=== PATIENT | female | born 1990 | race Caucasian/White ===

== ENCOUNTER → 2020-08-26 | Outpatient (CLI) | payer BC, OTHER ==
--- NOTE | 2020-09-01 09:01 | REP ---
OBSTETRIC SONOGRAPHY HISTORY: 32 weeks, growth study. Amniotic fluid index (SHANELL), estimated weight. FINDINGS: Scanning through the gravid uterus demonstrates a viable single intrauterine gestation in a transverse, head to the maternal left lie. A posterior grade 2 placenta is seen without evidence of previa. Amniotic fluid is subjectively normal. SHANELL is normal at 17.4 cm. heart rate is recorded at 133 beats per minute. Closed cervical length is measured transabdominally at 3.8 cm. S/D ratio in the umbilical cord artery by Doppler is normal at 2.96. The following anatomic structures are identified today and felt to be unremarkable: cranium and intracranial contents, face and profile nose and lips, lungs, diaphragm, left-sided stomach, abdominal wall cord insertion, kidneys and bladder, spine. BIOMETRY CHART: BPD 7.8 cm 31 weeks 2 days Head circumference 29.8 cm 33 weeks 0 days Abdominal circumference 30.8 cm 34 weeks 5 days Femur length 6.0 cm 31 weeks 1 day Humeral length 5.3 cm 31 weeks 0 days AC/HC ratio 0.97 Normal Cephalic index 0.71 Normal Estimated weight 2146 grams, 4 pounds 11 ounces, 65th percentile for 32 weeks 3 days. IMPRESSION: Viable single intrauterine gestation at 32 weeks 1 day by todays composite sonographic criteria. Estimated date of delivery (RANDA) by todays sonography 10/20/2020. MTDD
== END ==
LOC: M RAD 15:32
DX: Z34.83 Encounter for supervision of other normal pregnancy, third trimester (principal); Z3A.32 32 weeks gestation of pregnancy